=== PATIENT | male | born 1975 | race Caucasian/White ===

== ENCOUNTER 2018-06-22 13:38 | Emergency (ER) | payer SELFPAY ==
[~2018-06-22] VITALS: Ht 180.3 cm; Wt 100.0 kg
[2018-06-22 13:52] VITALS: Ht 180.3 cm; Wt 100.0 kg
[2018-06-22] MEDS ORDERED: VOLTAREN75 MG PO (14:22)
[2018-06-22] MEDS ORDERED: VIBRAMYCIN 100100 MG PO (14:22)
[2018-06-22 14:59] VITALS: BP 159/93
== END 2018-06-22 15:00 | disposition home or self-care (01) ==
LOC: D.ER 13:38
DX: L03.114 Cellulitis of left upper limb (principal); F17.200 Nicotine dependence, unspecified, uncomplicated

== ENCOUNTER 2019-07-25 23:32 | Emergency (ER) | payer SELFPAY ==
[~2019-07-25] VITALS: Ht 180.3 cm; Wt 90.9 kg
[~2019-07-25 23:32] MED LIST: VIBRAMYCIN 100100 MG PO; VOLTAREN75 MG PO
[2019-07-25 23:36] VITALS: Ht 180.3 cm; Wt 90.9 kg
[2019-07-25] MEDS ORDERED: STERAPRED DS 1010 MG PO (23:56)
[2019-07-26 00:19] VITALS: BP 169/98
== END 2019-07-26 00:19 | disposition home or self-care (01) ==
LOC: D.ER 23:32
DX: R21 Rash and other nonspecific skin eruption (principal)

== ENCOUNTER 2019-08-03 13:01 | Emergency (ER) | payer SELFPAY ==
[~2019-08-03] VITALS: Ht 180.3 cm; Wt 93.2 kg
[~2019-08-03 13:01] MED LIST changes: +STERAPRED DS 1010 MG PO
[2019-08-03 13:05] VITALS: Ht 180.3 cm; Wt 93.2 kg
[2019-08-03] MEDS ORDERED: VIBRAMYCIN 100100 MG PO (13:57)
[2019-08-03 14:09] VITALS: BP 154/97
== END 2019-08-03 14:10 | disposition home or self-care (01) ==
LOC: D.ER 13:01
DX: L03.211 Cellulitis of face (principal)

== ENCOUNTER 2020-03-16 13:48 | Emergency (ER) | payer SELFPAY ==
[~2020-03-16] VITALS: Ht 180.3 cm; Wt 90.9 kg
[2020-03-16 14:04] VITALS: Ht 180.3 cm; Wt 90.9 kg
[2020-03-16] MEDS ORDERED: KEFLEX500 MG PO (14:28)
[2020-03-16] MEDS ORDERED: STERAPRED DS 1010 MG PO (14:28)
[2020-03-16 14:51] VITALS: BP 162/112
== END 2020-03-16 14:45 | disposition home or self-care (01) ==
LOC: D.ER 13:48
DX: J06.9 Acute upper respiratory infection, unspecified (principal); J01.90 Acute sinusitis, unspecified

== ENCOUNTER 2020-10-28 14:39 | Emergency (ER) | payer MEDICAID ==
[~2020-10-28] VITALS: Ht 180.3 cm; Wt 95.5 kg
[~2020-10-28 14:39] MED LIST changes: +BACLOFEN10 MG PO; +DICLOFENAC SODI50 MG PO; +KEFLEX500 MG PO; +ZITHROMAX500 MG PO
[2020-10-28 14:53] VITALS: Ht 180.3 cm; Wt 95.5 kg
[2020-10-28 15:50] LABS: BASOPHILS 0.3 % (0-2); EOSINOPHILS 2.9 % (0-7); HEMATOCRIT 45.1 % (42.0-54.0); HEMOGLOBIN 14.9 g/dL (13.5-17.5); IMMATURE GRANULOCYTES 0.2 % (0-5); LYMPHOCYTE ABS# 1.75 10x3/uL (1.32-3.57); LYMPHOCYTES 20.3 % (15-50); MCH 28.5 pg (26.0-34.0); MCV 86.4 fL (80.0-100.0); MEAN PLATELET VOLUME 9.6 fL (7.4-10.4); NEUTROPHIL ABS# 5.95 10x3/uL (1.78-5.38); NEUTROPHILS 69.3 % (40-80); PLATELET COUNT 345 10x3/uL (130-400); RBC 5.22 10x6/uL (4.20-6.10); RDW 14.3 % (11.5-14.5); WBC 8.6 10x3/uL (4.8-10.8)
[2020-10-28 15:58] LABS: CALC OSMOLALITY 272 mosm/kg (275-300); CALCIUM 9.1 mg/dL (8.5-10.1); CARBON DIOXIDE 28.5 mmol/L (21.0-32.0); CHLORIDE - SERUM 101 mmol/L (98-107); CREATININE - SERUM 1.1 mg/dL (0.6-1.3); GLUCOSE 113 mg/dL (74-106); SODIUM 137 mmol/L (136-145); UREA NITROGEN 8 mg/dL (7-18); eGFR NON AFRICAN AMERICAN 76 mL/min (90-120)
[2020-10-28 16:04] LABS: ALBUMIN 3.4 g/dL (3.4-5.0); ALKALINE PHOSPHATASE 126 U/L (30-120); ALT (SGPT) 29 U/L (10-68); BILIRUBIN - TOTAL 0.28 mg/dL (0.2-1.3)
[2020-10-28 16:51] LABS: ERYTHROCYTE SEDIMENTATION RATE 20 mm/hr (0-15)
[2020-10-28 17:11] VITALS: BP 136/95
== END 2020-10-28 17:18 | disposition other institution (70) ==
LOC: D.ER 14:39
PROVIDERS: Family Medicine
DX: H40.9 Unspecified glaucoma (principal); S05.02XA Injury of conjunctiva and corneal abrasion without foreign body, left eye, initial encounter; H53.9 Unspecified visual disturbance; I10 Essential (primary) hypertension; Z72.0 Tobacco use; X58.XXXA Exposure to other specified factors, initial encounter

== ENCOUNTER 2020-12-13 21:00 | Emergency (ER) | payer SELFPAY ==
[~2020-12-13] VITALS: Ht 180.3 cm; Wt 90.9 kg
[2020-12-13 21:09] VITALS: BP 164/89; Ht 180.3 cm; Wt 90.9 kg
[2020-12-13] MEDS ORDERED: LOTRIMIN AF90 GM TOPICAL (22:09)
== END 2020-12-13 22:19 | disposition home or self-care (01) ==
LOC: D.ER 21:00
DX: B35.6 Tinea cruris (principal); I10 Essential (primary) hypertension; Z72.0 Tobacco use